=== PATIENT | female | born 1955 | race Caucasian/White ===

== ENCOUNTER → 2017-08-31 | Outpatient (CLI) | payer OTHER ==
[~2017-08-31] MED LIST: BUPIVACAINE HCL 0.5 % INJ/PF 30 ML SDV ONE
[2017-08-31 12:30] LABS: ABSOLUTE BASOPHILS # (AUTO) 0.1 10^3/uL (0.0-0.2); ABSOLUTE MONOCYTES (AUTO) 0.4 10^3/uL (0.1-1.4); ABSOLUTE NEUT (AUTO) 5.9 10^3/uL (1.7-8.2); BASOPHILS % (AUTO) 0.8 % (0-2); EOSINOPHILS % (AUTO) 0.6 % (0-6); HEMATOCRIT 36.5 % (36.0-47.0); LYMPHOCYTES % (AUTO) 14.1 % (13-45); MEAN CORPUSCULAR HEMOGLOBIN 28.3 pg (27.0-33.4); MEAN CORPUSCULAR VOLUME 86 fl (80-97); MONOCYTES % (AUTO) 5.1 % (3-13); PLATELET COUNT 498 10^3/uL (150-450); RED BLOOD COUNT 4.26 10^6/uL (3.72-5.28); RED CELL DISTRIBUTION WIDTH 13.3 % (11.5-14.0); SEGMENTED NEUTROPHILS % (AUTO) 79.4 % (42-78); TOTAL CELLS COUNTED % (AUTO) 100 %; WHITE BLOOD COUNT 7.4 10^3/uL (4.0-10.5)
[2017-08-31 12:51] LABS: ALANINE AMINOTRANSFERASE 40 U/L (9-52); ALBUMIN 4.5 g/dL (3.5-5.0); ALKALINE PHOSPHATASE 129 U/L (38-126); ANION GAP 15 (5-19); ASPARTATE AMINO TRANSFERASE 18 U/L (14-36); BILIRUBIN,DIRECT 0.3 mg/dL (0.0-0.4); BILIRUBIN,TOTAL 0.4 mg/dL (0.2-1.3); BLOOD UREA NITROGEN 17 mg/dL (7-20); C-REACTIVE PROTEIN 7.2 mg/L (<10.0); CALCIUM 10.5 mg/dL (8.4-10.2); CARBON DIOXIDE 28 mmol/L (22-30); CHLORIDE 101 mmol/L (98-107); GLUCOSE 101 mg/dL (75-110); POTASSIUM 3.8 mmol/L (3.6-5.0); SODIUM 144.3 mmol/L (137-145); TOTAL PROTEIN 7.6 g/dL (6.3-8.2)
[2017-08-31 13:14] LABS: ERYTHROCYTE SEDIMENTATION RATE 72 mm/hr (0-30)
--- NOTE | 2017-08-31 14:19 | RADIOLOGY REPORT (SQ) ---
EXAM DESCRIPTION: MRI RT UPPER EXTREMITY COMBO COMPLETED DATE/TIME: 08/31/2017 2:05 pm REASON FOR STUDY: M54.12 RADICULOPATHY,CERVICAL REGION M86.149 OTHER ACUTE OSTEOMYELITIS M86.149 OT HER ACUTE OSTEOMYELITIS, UNSPECIFIED HAND M54.12 RADICULOPATHY, CERVICAL REGION COMPARISON: None. TECHNIQUE: Multiplanar imaging of the right thumb to include fat and fluid sensitive sequences. LIMITATIONS: Motion. No plain film for correlation. FINDINGS: BONE MARROW: There is edema in the proximal and distal 1st phalanges. There is a defect i n the head of the proximal 1st phalanx. No evidence of bone abscess. SOFT TISSUES: Swelling and edema in the soft tissues adjacent to the proximal and distal 1st phalanx. Subcutaneous gas. No organized gas fluid collection. OTHER: No other significant finding. IMPRESSION: Positive for osteomyelitis proximal and distal 1st phalanx. TECHNICAL DOCUMENTATION: JOB ID: [id number] [employer]- All Rights Reserved
--- NOTE | 2017-08-31 14:21 | RADIOLOGY REPORT (SQ) ---
EXAM DESCRIPTION: MRI CERVICAL SPINE WITHOUT COMPLETED DATE/TIME: 08/31/2017 2:05 pm REASON FOR STUDY: M54.12 RADICULOPATHY,CERVICAL REGION M86.149 OTHER ACUTE OSTEOMYELITIS M86.149 OT HER ACUTE OSTEOMYELITIS, UNSPECIFIED HAND M54.12 RADICULOPATHY, CERVICAL REGION COMPARISON: None available. Previous MRI exams from [facility] are not available TECHNIQUE: Sagittal and Axial imaging includes T1, T2, STIR and gradient echo sequences. LIMITATIONS: None. FINDINGS: ALIGNMENT: Normal. VERTEBRAE: Intact. BONE MARROW: Normal. No marrow replacement or reactive changes. DISCS: Normal. No significant abnormal signal or loss of height. HARDWARE: None in the spine. CORD AND BASE OF BRAIN: There is a cervical cord syrinx involving the rightward half of the cervical and upper thoracic spinal cord, from the medulla at the C1 level through the inferior edge of the fi eld of view at T4. SOFT TISSUES: No soft tissue masses. C1-C2: No significant spinal stenosis. C2-C3: No significant spinal stenosis or exit foraminal stenosis. C3-C4: No significant spinal stenosis or exit foraminal stenosis. C4-C5: No significant spinal stenosis or exit foraminal stenosis. C5-C6: No significant spinal stenosis or exit foraminal stenosis. C6-C7: Minimal posterior disc bulging is present without significant central or foraminal encroachmen t. C7-T1: No significant spinal stenosis or exit foraminal stenosis. UPPER THORACIC: Incompletely imaged. No significant spinal stenosis or exit foraminal stenosis. OTHER: No other significant finding. IMPRESSION: No significant central or foraminal encroachment. Cervical cord syrinx extending into the upper thoracic cord. Inferior extent of this was not imaged today TECHNICAL DOCUMENTATION: JOB ID: [id number]- All Rights Reserved
== END ==
LOC: RAD 11:28
PROVIDERS: ATTEND Orthopaedic Surgery
DX: M54.12 Radiculopathy, cervical region (principal); M86.141 Other acute osteomyelitis, right hand
CPT/HCPCS: 36415; 87040; 85025; 85652; 86140; 80053; 72141; 73220; A9576

== ENCOUNTER 2017-09-01 05:32 | Inpatient (IN) | payer OTHER ==
--- NOTE | 2017-09-01 15:50 | RADIOLOGY REPORT (SQ) ---
EXAM DESCRIPTION: CHEST SINGLE VIEW COMPLETED DATE/TIME: 09/01/2017 3:35 pm REASON FOR STUDY: PREOP COMPARISON: None. EXAM PARAMETERS: NUMBER OF VIEWS: One view. TECHNIQUE: Single frontal radiographic view of the chest acquired. RADIATION DOSE: NA LIMITATIONS: None. FINDINGS: LUNGS AND PLEURA: No opacities, masses or pneumothorax. No pleural effusion. MEDIASTINUM AND HILAR STRUCTURES: No masses. Contour normal. Retrocardiac hiatal hernia. HEART AND VASCULAR STRUCTURES: Heart normal in size. Normal vasculature. BONES: Osteopenic. Right shoulder arthroplasty HARDWARE: Radiopaque wire projected over the midline chest, at about the T10 level OTHER: No other significant finding. IMPRESSION: NO ACUTE RADIOGRAPHIC FINDING IN THE CHEST. TECHNICAL DOCUMENTATION: JOB ID: [id number] [employer]- All Rights Reserved
[2017-09-01] MEDS ORDERED: FENTANYL CITRATE INJ/PF 100 MCG/2 ML AMPUL ONE (16:29)
[2017-09-01] MEDS ORDERED: PROPOFOL INJ 200 MG/20 ML VIAL IV ONE (16:30)
[2017-09-01] MEDS ORDERED: MIDAZOLAM 2 MG/2 ML INJ ONE (16:30)
[2017-09-01] MEDS ORDERED: CLINDAMYCIN PHOSPHATE INJ 300 MG/2 ML SDV ONE (17:06)
--- NOTE | 2017-09-01 17:23 | Operative Report ---
Operative Report PREOPERATIVE DIAGNOSIS: Osteomyelitis right thumb distal and proximal phalanx POSTOPERATIVE DIAGNOSIS: Same OPERATION: Irrigation and debridement including bone and soft tissue with amputation of the right thumb at the level of the proximal phalanx neck. SURGEON: NESSA MCGUIRE ANESTHESIA: GA TISSUE REMOVED OR ALTERED: Aerobic/anaerobic cultures. AFB fungal. Bone sent to pathology COMPLICATIONS: None ESTIMATED BLOOD LOSS: Minimal PROCEDURE: Indication for above procedure: 62-year-old female with history of syrinx which she underwent surgery for in the past. Patient sustained a burn to her right thumb since then she has noticed increased redness and swelling but not discomfort likely secondary to chronic neuropathy. I then obtained laboratory values and MRI which confirmed diagnosis of osteomyelitis. We discussed treatment options given the extensive nature of her injury the joint decision was made to proceed with operative treatment including amputation at the appropriate level. Patient understands she will lose function after partial thumb amputation also will attempt to retain as much thumb as possible and thus patient may require repeat operative intervention. Procedure In Detail: Patient was seen and evaluated in the preoperative holding area. The RIGHT upper extremity was initialized and marked. Patient received clindamycin for bacterial prophylaxis after cultures were obtained intraoperatively. Patient was taken back to the operative room where transferred to the operative table and placed under general anesthesia. Once they were adequately anesthetized a nonsterile tourniquet was placed on the upper extremity. A surgical team debriefing was performed ensuring all instrumentation was available, the surgical procedure was discussed with possible concerns reviewed. The upper extremity was prepped with Betadine and draped in a sterile fashion. A timeout was done identifying correct patient, procedure and extremity everyone in attendance agree with this and verbalized no concerns. The extremity was elevated the tourniquet was inflated to 250 mmHg. A volar flap skin incision was made along the distal aspect of the thumb involving tissue of the volar pulp but extending proximally past patient's wounds. Sharp dissection was performed and a transarticular amputation was performed at the DIP joint. Tissue swabs were sent for culture. The distal phalanx was then split with partial going to culture and other part going to pathology. This will be sent for AFB, fungal, aerobic and anaerobic culture. I then identified the proximal phalanx head. This was then amputated at the level consistent with osteomyelitis on patient's MRI. There was still some residual softening of the bone proximal to this this was also removed until normal-appearing bone was encountered. No active purulence was appreciated proximally. Any peripheral bleeding was coagulated with bipolar cautery. Branches of the digital nerves were excised proximally to avoid postoperative neuroma. The wound was then copiously irrigated with normal saline. The stump was then closed with interrupted 3-0 nylon suture. The edges were contoured to avoid any dog ear. The wound was then dressed with Xeroform and a soft dressing and tourniquet was deflated. Sponge counts, instrument counts, needle counts counts were correct. Patient was then awoken from anesthesia. Transferred from the operating room table to the operating room stretcher. There was no intraoperative complications patient tolerated procedure well stable to PACU. Postoperative plan: Patient will be admitted to the hospital for IV antibiotics. Patient will require PICC line treatment for 4 weeks postoperatively
[2017-09-01] MEDS ORDERED: ONDANSETRON HCL INJ/PF 4 MG/2 ML SDV IV PRN (17:24)
[2017-09-01] MEDS ORDERED: MORPHINE SULFATE 10 MG/ML INJ IV PRN (17:41)
[2017-09-01] MEDS ORDERED: DIPHENHYDRAMINE HCL 50 MG/ML VIAL IV PRN (17:41)
[2017-09-01] MEDS ORDERED: MEPERIDINE HCL/PF INJ 25 MG/1 ML DISP.SYRIN IV PRN (17:41)
[2017-09-01] MEDS ORDERED: PROMETHAZINE HCL INJ 25 MG/1 ML VIAL IV PRN (17:41)
[2017-09-01] MEDS ORDERED: FENTANYL CITRATE INJ/PF 100 MCG/2 ML AMPUL IV PRN (17:41)
[2017-09-01] MEDS ORDERED: OXYCODONE-ACETAMINOPHEN 5-325 MG TABLET PO PRN (18:17)
--- NOTE | 2017-09-01 18:18 | EKG REPORT ---
SEVERITY:- OTHERWISE NORMAL ECG - SINUS TACHYCARDIA : Confirmed by: Jeremy Beyer MD 01-Sep-2017 18:17:39
[2017-09-01] MEDS ORDERED: DEXAMETHASONE SOD PHOSPHATE INJ 4 MG/1 ML VIAL ONE (20:43)
[2017-09-01] MEDS ORDERED: ONDANSETRON HCL INJ/PF 4 MG/2 ML SDV ONE (20:43)
[2017-09-01] MEDS ORDERED: NORMAL SALINE 1000 ML 2,000 ML IV ONE (23:36)
[2017-09-02 01:41] LABS: APPEARANCE,URINE CLEAR; BILIRUBIN,URINE NEGATIVE (NEGATIVE); COLOR,URINE STRAW; GLUCOSE, URINE NEGATIVE (NEGATIVE); KETONES,URINE NEGATIVE (NEGATIVE); LEUKOCYTE ESTERASE,URINE NEGATIVE (NEGATIVE); NITRITE,URINE NEGATIVE (NEGATIVE); PROTEIN,URINE NEGATIVE (NEGATIVE); URINE SPECIFIC GRAVITY 1.005; UROBILINOGEN,URINE NEGATIVE mg/dL (<2.0)
--- NOTE | 2017-09-02 02:39 | PDOC CONSULTATION ---
Consultation Consult Date: 09/01/17 Attending physician:: NESSA MCGUIRE Consult reason:: Hypotension History of Present Illness Admission Date/PCP: JESSE GODFREY MD History of Present Illness: CHARO SEPULVEDA is a 62 year old female with past medical history of syrinx, depression, hypertension, hyperlipidemia and prediabetes who underwent right thumb removal for osteomyelitis today. Patient reports that she took her lisinopril this morning. She reports that she felt quite dehydrated that she went to bed quite early last evening and had not had anything to eat or drink until after surgery. Patient was found to be hypotensive postoperatively with blood pressure of 80/50. The hospital service is consulted for management of hypotension. Past Medical History Cardiac Medical History: Reports: Hyperlipidema, Hypertension Denies: Coronary Artery Disease, Myocardial Infarction Pulmonary Medical History: Denies: Asthma, Bronchitis, Chronic Obstructive Pulmonary Disease (COPD), Pneumonia Neurological Medical History: Reports: Other - Syrinx Denies: Seizures Musculoskeltal Medical History: Reports: Arthritis Hematology: Denies: Anemia Past Surgical History Past Surgical History: Reports: Orthopedic Surgery, Other - Spinal fusion, shunt for syrinx Social History Smoking Status: Never Smoker Frequency of Alcohol Use: Rare Hx Recreational Drug Use: No Hx Prescription Drug Abuse: No - Advance Directive Resuscitation Status: Full Code Surrogate healthcare decision maker:: , Carlin Ortega Family History Family History: Hypertension Parental Family History Reviewed: Yes Children Family History Reviewed: Yes Sibling(s) Family History Reviewed.: Yes Medication/Allergy Home Medications: Aspirin [Ecotrin 81 mg EC Tablet] 81 mg PO DAILY 08/31/17 Bupropion HCl [Bupropion HCl Sr] 100 mg PO QAM 08/31/17 Cholecalciferol (Vitamin D3) [Vitamin D3] 1,000 unit PO DAILY 08/31/17 Cyclobenzaprine HCl 10 mg PO PRN PRN 08/31/17 Hydrocodone Bit/Acetaminophen [Hydrocodon-Acetaminophen 5-325] 1 each PO Q6 PRN 08/31/17 Lisinopril/Hydrochlorothiazide [Lisinopril-Hctz 20-25 mg Tab] 1 each PO DAILY Metformin HCl [Metformin HCl ER] 500 mg PO QAM 08/31/17 Pravastatin Sodium 40 mg PO QHS 08/31/17 Sulfamethoxazole/Trimethoprim [Bactrim Ds Tablet] 1 each PO BID 08/31/17 Allergies/Adverse Reactions: No Known Allergies Allergy (Verified 09/01/17 16:12) Review of Systems Constitutional: ABSENT: chills, fever(s), headache(s), weight gain, weight loss Eyes: ABSENT: visual disturbances Ears: ABSENT: hearing changes Cardiovascular: ABSENT: chest pain, dyspnea on exertion, edema, orthropnea, palpitations Respiratory: ABSENT: cough, hemoptysis Gastrointestinal: ABSENT: abdominal pain, constipation, diarrhea, hematemesis, hematochezia, nausea, vomiting Genitourinary: ABSENT: dysuria, hematuria Musculoskeletal: ABSENT: joint swelling Integumentary: ABSENT: rash, wounds Neurological: ABSENT: abnormal gait, abnormal speech, confusion, dizziness, focal weakness, syncope Psychiatric: ABSENT: anxiety, depression, homidical ideation, suicidal ideation Endocrine: ABSENT: cold intolerance, heat intolerance, polydipsia, polyuria Hematologic/Lymphatic: ABSENT: easy bleeding, easy bruising Physical Exam Vital Signs: Temp Pulse Resp BP Pulse Ox 98.4 F 93 17 103/55 L 97 09/01/17 20:16 09/01/17 20:16 09/01/17 20:16 09/01/17 20:16 09/01/17 20:16 Intake & Output 08/31/17 09/01/17 09/02/17 06:59 06:59 06:59 Intake Total 1200 Balance 1200 Weight 57.15 kg 57.15 kg General appearance: PRESENT: no acute distress, well-developed, well-nourished Head exam: PRESENT: atraumatic, normocephalic Eye exam: PRESENT: conjunctiva pink, EOMI, PERRLA. ABSENT: scleral icterus Ear exam: PRESENT: normal external ear exam Mouth exam: PRESENT: dry mucosa, tongue midline Neck exam: ABSENT: carotid bruit, JVD, lymphadenopathy, thyromegaly Respiratory exam: PRESENT: clear to auscultation josé miguel. ABSENT: rales, rhonchi, wheezes Cardiovascular exam: PRESENT: RRR, +S1, +S2. ABSENT: diastolic murmur, rubs, systolic murmur Pulses: PRESENT: normal dorsalis pedis pul Vascular exam: PRESENT: normal capillary refill GI/Abdominal exam: PRESENT: normal bowel sounds, soft. ABSENT: distended, guarding, mass, organolmegaly, rebound, tenderness Rectal exam: PRESENT: deferred Extremities exam: PRESENT: full ROM. ABSENT: calf tenderness, clubbing, pedal edema Musculoskeletal exam: PRESENT: deformity - Right hand bandage, clean dry and intact Neurological exam: PRESENT: alert, awake, oriented to person, oriented to place , oriented to time, oriented to situation, CN II-XII grossly intact. ABSENT: motor sensory deficit Psychiatric exam: PRESENT: appropriate affect, normal mood. ABSENT: homicidal ideation, suicidal ideation Skin exam: PRESENT: dry, intact, warm. ABSENT: cyanosis, rash Results Laboratory Results: 09/02/17 01:20 Urine Color STRAW Urine Appearance CLEAR Urine pH 7.0 Ur Specific [place] 1.005 Urine Protein NEGATIVE Urine Glucose (UA) NEGATIVE Urine Ketones NEGATIVE Urine Blood NEGATIVE Urine Nitrite NEGATIVE Ur Leukocyte Esterase NEGATIVE Urine WBC (Auto) 0 Urine RBC (Auto) 0 Impressions: Chest X-Ray 09/01/17 00:00 IMPRESSION: NO ACUTE RADIOGRAPHIC FINDING IN THE CHEST. Assessment & Plan - Diagnosis (1) Hypotension Qualifiers: Hypotension type: unspecified hypotension type Qualified Code(s): I95.9 - Hypotension, unspecified Is this a current diagnosis for this admission?: Yes Plan: Patient's hypotension is likely secondary to intravascular volume depletion as well as good compliance with her antihypertensive therapy. Will give patient a 2 L bolus and then run patient on normal saline at 150 mL/h. On the off chance that patient could be developing an infection we will obtain a UA and recommend repeat CBC in the a.m. patient is currently on clindamycin and Cipro for her osteomyelitis. Defer treatment of the osteomyelitis to the primary surgical team. (2) Osteomyelitis Qualifiers: Osteomyelitis type: unspecified type Osteomyelitis location: hand Laterality: right Qualified Code(s): M86.9 - Osteomyelitis, unspecified Is this a current diagnosis for this admission?: Yes Plan: patient is on Cipro and clindamycin for her osteomyelitis. Defer treatment of her osteomyelitis to the primary surgical team. They should be advised to monitor for other symptoms of sepsis. (3) Dehydration Is this a current diagnosis for this admission?: Yes Plan: Will give 2 L bolus and obtain orthostatics. - Time Time Spent: 30 to 50 Minutes
[2017-09-02] MEDS: CIPROFLOXACIN 200 MG/D5W RTU 200 MG/100 ML RTUPB IV SCH ×3 (03:50→21:50)
[2017-09-02] MEDS: RIVAROXABAN 10 MG TABLET PO SCH ×2 (03:53→21:50)
[2017-09-02 05:20] LABS: ABSOLUTE LYMPHOCYTES (AUTO) 1.2 10^3/uL (0.5-4.7); ABSOLUTE MONOCYTES (AUTO) 0.3 10^3/uL (0.1-1.4); ABSOLUTE NEUT (AUTO) 3.9 10^3/uL (1.7-8.2); BASOPHILS % (AUTO) 0.4 % (0-2); EOSINOPHILS % (AUTO) 0.1 % (0-6); HEMATOCRIT 27.4 % (36.0-47.0); LYMPHOCYTES % (AUTO) 21.7 % (13-45); MEAN CORPUSCULAR HEMOGLOBIN 28.6 pg (27.0-33.4); MEAN CORPUSCULAR HGB CONC 33.3 g/dL (32.0-36.0); MEAN CORPUSCULAR VOLUME 86 fl (80-97); MONOCYTES % (AUTO) 5.3 % (3-13); PLATELET COUNT 317 10^3/uL (150-450); RED CELL DISTRIBUTION WIDTH 13.4 % (11.5-14.0); SEGMENTED NEUTROPHILS % (AUTO) 72.5 % (42-78); TOTAL CELLS COUNTED % (AUTO) 100 %; WHITE BLOOD COUNT 5.4 10^3/uL (4.0-10.5)
[2017-09-02 05:29] LABS: HEMOGLOBIN 9.1 g/dL (12.0-15.5)
[2017-09-02] MEDS: CLINDAMYCIN 600 MG/D5W RTU 600 MG/50 ML RTUPB IV SCH ×3 (05:29→17:02)
[2017-09-02 05:50] LABS: ANION GAP 11 (5-19); BLOOD UREA NITROGEN 16 mg/dL (7-20); CALCIUM 8.7 mg/dL (8.4-10.2); CARBON DIOXIDE 20 mmol/L (22-30); CHLORIDE 111 mmol/L (98-107); GLUCOSE 100 mg/dL (75-110); POTASSIUM 4.4 mmol/L (3.6-5.0); SODIUM 141.5 mmol/L (137-145)
--- NOTE | 2017-09-02 09:13 | PDOC PROGRESS REPORT ---
Subjective Progress Note for:: 09/02/17 Subjective:: Patient voices no complaints Reason For Visit: OSTEOMYELITIS RIGHT THUMB Physical Exam Vital Signs: Temp Pulse Resp BP Pulse Ox 98.3 F 91 18 99/59 L 99 09/02/17 07:26 09/02/17 07:26 09/02/17 07:26 09/02/17 07:26 09/02/17 07:26 Intake & Output 09/01/17 09/02/17 09/03/17 06:59 06:59 06:59 Intake Total 4107 Output Total 1050 Balance 3057 Weight 57.15 kg 57.3 kg General appearance: PRESENT: no acute distress, cooperative, well-developed, well-nourished Head exam: PRESENT: atraumatic, normocephalic Eye exam: PRESENT: conjunctiva pink, EOMI, PERRLA Ear exam: PRESENT: normal external ear exam Mouth exam: PRESENT: moist Neck exam: PRESENT: full ROM. ABSENT: JVD, tenderness, thyromegaly Respiratory exam: PRESENT: clear to auscultation josé miguel Cardiovascular exam: PRESENT: RRR. ABSENT: diastolic murmur, systolic murmur Vascular exam: PRESENT: normal capillary refill GI/Abdominal exam: PRESENT: normal bowel sounds, soft. ABSENT: tenderness Extremities exam: PRESENT: full ROM. ABSENT: joint swelling, pedal edema Neurological exam: PRESENT: alert, oriented to person, oriented to place, oriented to time, CN II-XII grossly intact Results Laboratory Results: 09/02/17 04:28 09/02/17 04:28 09/02/17 09/02/17 09/02/17 01:20 01:33 04:28 WBC 5.4 RBC 3.20 L Hgb 9.1 L D Hct 27.4 L MCV 86 MCH 28.6 MCHC 33.3 RDW 13.4 Plt Count 317 Seg Neutrophils % 72.5 Lymphocytes % 21.7 Monocytes % 5.3 Eosinophils % 0.1 Basophils % 0.4 Absolute Neutrophils 3.9 Absolute Lymphocytes 1.2 Absolute Monocytes 0.3 Absolute Eosinophils 0.0 Absolute Basophils 0.0 Sodium Potassium Chloride Carbon Dioxide Anion Gap BUN Creatinine Est GFR ( Amer) Est GFR (Non-Af Amer) Glucose Calcium Urine Color STRAW Urine Appearance CLEAR Urine pH 7.0 Ur Specific [place] 1.005 Urine Protein NEGATIVE Urine Glucose (UA) NEGATIVE Urine Ketones NEGATIVE Urine Blood NEGATIVE Urine Nitrite NEGATIVE Ur Leukocyte Esterase NEGATIVE Urine WBC (Auto) 0 Urine RBC (Auto) 0 Blood Type AB POSITIVE Antibody Screen NEGATIVE 09/02/17 04:28 WBC RBC Hgb Hct MCV MCH MCHC RDW Plt Count Seg Neutrophils % Lymphocytes % Monocytes % Eosinophils % Basophils % Absolute Neutrophils Absolute Lymphocytes Absolute Monocytes Absolute Eosinophils Absolute Basophils Sodium 141.5 Potassium 4.4 Chloride 111 H Carbon Dioxide 20 L Anion Gap 11 BUN 16 Creatinine 0.74 Est GFR ( Amer) > 60 Est GFR (Non-Af Amer) > 60 Glucose 100 Calcium 8.7 Urine Color Urine Appearance Urine pH Ur Specific [place] Urine Protein Urine Glucose (UA) Urine Ketones Urine Blood Urine Nitrite Ur Leukocyte Esterase Urine WBC (Auto) Urine RBC (Auto) Blood Type Antibody Screen Impressions: Chest X-Ray 09/01/17 00:00 IMPRESSION: NO ACUTE RADIOGRAPHIC FINDING IN THE CHEST. Assessment & Plan - Diagnosis (1) Dehydration Is this a current diagnosis for this admission?: Yes Plan: Resolved (2) Hypotension Qualifiers: Hypotension type: unspecified hypotension type Qualified Code(s): I95.9 - Hypotension, unspecified Is this a current diagnosis for this admission?: Yes Plan: Stable and likely induced due to medications for pain and dehydration - Time Time Spent with patient: Less than 15 minutes Medications reviewed and adjusted accordingly: Yes Anticipated discharge: Home Disposition: As per admitting physician
--- NOTE | 2017-09-02 09:25 | EKG REPORT ---
SEVERITY:- NORMAL ECG - SINUS RHYTHM : Confirmed by: Jeremy Beyer MD 02-Sep-2017 09:25:05
--- NOTE | 2017-09-02 09:41 | PDOC PROGRESS REPORT ---
Subjective Progress Note for:: 09/02/17 Subjective:: Patient ambulating in her room. Denies pain or discomfort. Did have some hypotension last evening but denies chest pain or shortness of breath. Denies headache or dizziness. Reason For Visit: OSTEOMYELITIS RIGHT THUMB Physical Exam Vital Signs: Temp Pulse Resp BP Pulse Ox 98.3 F 91 18 99/59 L 99 09/02/17 07:26 09/02/17 07:26 09/02/17 07:26 09/02/17 07:26 09/02/17 07:26 Intake & Output 09/01/17 09/02/17 09/03/17 06:59 06:59 06:59 Intake Total 4107 Output Total 1050 Balance 3057 Weight 57.15 kg 57.3 kg Musculoskeletal exam: PRESENT: other - Right hand: Dressing clean/dry/intact no erythema or drainage no streaking erythema. Results Laboratory Results: 09/02/17 04:28 09/02/17 04:28 09/02/17 09/02/17 09/02/17 01:20 01:33 04:28 WBC 5.4 RBC 3.20 L Hgb 9.1 L D Hct 27.4 L MCV 86 MCH 28.6 MCHC 33.3 RDW 13.4 Plt Count 317 Seg Neutrophils % 72.5 Lymphocytes % 21.7 Monocytes % 5.3 Eosinophils % 0.1 Basophils % 0.4 Absolute Neutrophils 3.9 Absolute Lymphocytes 1.2 Absolute Monocytes 0.3 Absolute Eosinophils 0.0 Absolute Basophils 0.0 Sodium Potassium Chloride Carbon Dioxide Anion Gap BUN Creatinine Est GFR ( Amer) Est GFR (Non-Af Amer) Glucose Calcium Urine Color STRAW Urine Appearance CLEAR Urine pH 7.0 Ur Specific [place] 1.005 Urine Protein NEGATIVE Urine Glucose (UA) NEGATIVE Urine Ketones NEGATIVE Urine Blood NEGATIVE Urine Nitrite NEGATIVE Ur Leukocyte Esterase NEGATIVE Urine WBC (Auto) 0 Urine RBC (Auto) 0 Blood Type AB POSITIVE Antibody Screen NEGATIVE 09/02/17 04:28 WBC RBC Hgb Hct MCV MCH MCHC RDW Plt Count Seg Neutrophils % Lymphocytes % Monocytes % Eosinophils % Basophils % Absolute Neutrophils Absolute Lymphocytes Absolute Monocytes Absolute Eosinophils Absolute Basophils Sodium 141.5 Potassium 4.4 Chloride 111 H Carbon Dioxide 20 L Anion Gap 11 BUN 16 Creatinine 0.74 Est GFR ( Amer) > 60 Est GFR (Non-Af Amer) > 60 Glucose 100 Calcium 8.7 Urine Color Urine Appearance Urine pH Ur Specific [place] Urine Protein Urine Glucose (UA) Urine Ketones Urine Blood Urine Nitrite Ur Leukocyte Esterase Urine WBC (Auto) Urine RBC (Auto) Blood Type Antibody Screen Impressions: Chest X-Ray 09/01/17 00:00 IMPRESSION: NO ACUTE RADIOGRAPHIC FINDING IN THE CHEST. Assessment & Plan - Diagnosis (1) Osteomyelitis Qualifiers: Osteomyelitis type: unspecified type Osteomyelitis location: hand Laterality: right Qualified Code(s): M86.9 - Osteomyelitis, unspecified Is this a current diagnosis for this admission?: Yes Plan: Patient had no issues postoperatively after amputation of her thumb distal phalanx. We will continue to monitor cultures depending on culture results will change antibiotics accordingly. Given the extensive nature of her infection I do feel she would benefit from a PICC line for at least 4 weeks of IV antibiotics. Anticipate discharge once cultures are final at home antibiotics set up.
[2017-09-02] MEDS ORDERED: NORMAL SALINE 1000 ML 1,000 ML IV ONE (13:15)
[2017-09-03] MEDS: NORMAL SALINE 1000 ML 1,000 ML IV PRN ×2 (04:22→09:36)
[2017-09-03] MEDS: CLINDAMYCIN 600 MG/D5W RTU 600 MG/50 ML RTUPB IV SCH (04:22)
[2017-09-03 05:27] LABS: ABSOLUTE EOSINOPHILS # (AUTO) 0.1 10^3/uL (0.0-0.6); ABSOLUTE LYMPHOCYTES (AUTO) 1.5 10^3/uL (0.5-4.7); ABSOLUTE MONOCYTES (AUTO) 0.3 10^3/uL (0.1-1.4); BASOPHILS % (AUTO) 1.2 % (0-2); EOSINOPHILS % (AUTO) 2.4 % (0-6); HEMATOCRIT 27.9 % (36.0-47.0); HEMOGLOBIN 9.2 g/dL (12.0-15.5); LYMPHOCYTES % (AUTO) 37.3 % (13-45); MEAN CORPUSCULAR HEMOGLOBIN 28.6 pg (27.0-33.4); MEAN CORPUSCULAR VOLUME 87 fl (80-97); MONOCYTES % (AUTO) 8.2 % (3-13); PLATELET COUNT 279 10^3/uL (150-450); RED BLOOD COUNT 3.21 10^6/uL (3.72-5.28); RED CELL DISTRIBUTION WIDTH 13.7 % (11.5-14.0); SEGMENTED NEUTROPHILS % (AUTO) 50.9 % (42-78); TOTAL CELLS COUNTED % (AUTO) 100 %; WHITE BLOOD COUNT 3.9 10^3/uL (4.0-10.5)
[2017-09-03 06:16] LABS: ANION GAP 9 (5-19); BLOOD UREA NITROGEN 17 mg/dL (7-20); CALCIUM 8.8 mg/dL (8.4-10.2); CARBON DIOXIDE 22 mmol/L (22-30); CHLORIDE 110 mmol/L (98-107); GLUCOSE 99 mg/dL (75-110); POTASSIUM 4.5 mmol/L (3.6-5.0); SODIUM 141.1 mmol/L (137-145)
[2017-09-03] MEDS: CIPROFLOXACIN 200 MG/D5W RTU 200 MG/100 ML RTUPB IV SCH (09:34)
--- NOTE | 2017-09-03 09:53 | PDOC PROGRESS REPORT ---
Subjective Progress Note for:: 09/03/17 Subjective:: Patient voices no complaints Review of systems All organ systems had been reviewed and negative All significant laboratories and diagnostics had been reviewed Reason For Visit: OSTEOMYELITIS RIGHT THUMB Physical Exam Vital Signs: Temp Pulse Resp BP Pulse Ox 98.3 F 97 17 93/48 L 98 09/03/17 00:00 09/03/17 00:00 09/03/17 00:00 09/03/17 00:00 09/03/17 00:00 Intake & Output 09/02/17 09/03/17 09/04/17 06:59 06:59 06:59 Intake Total 4107 2130 Output Total 1050 Balance 3057 2130 Weight 57.3 kg 94.1 kg General appearance: PRESENT: no acute distress Head exam: PRESENT: atraumatic, normocephalic Eye exam: PRESENT: conjunctiva pink, EOMI, PERRLA Mouth exam: PRESENT: moist Neck exam: PRESENT: full ROM. ABSENT: JVD, tenderness Respiratory exam: PRESENT: clear to auscultation josé miguel Cardiovascular exam: PRESENT: RRR. ABSENT: diastolic murmur, systolic murmur Vascular exam: PRESENT: normal capillary refill GI/Abdominal exam: PRESENT: normal bowel sounds, soft. ABSENT: tenderness Extremities exam: PRESENT: full ROM. ABSENT: joint swelling, pedal edema Neurological exam: PRESENT: alert, oriented to person, oriented to place, oriented to time Psychiatric exam: PRESENT: appropriate affect, normal mood Results Laboratory Results: 09/03/17 04:19 09/03/17 04:19 09/03/17 09/03/17 04:19 04:19 WBC 3.9 L RBC 3.21 L Hgb 9.2 L Hct 27.9 L MCV 87 MCH 28.6 MCHC 33.0 RDW 13.7 Plt Count 279 Seg Neutrophils % 50.9 Lymphocytes % 37.3 Monocytes % 8.2 Eosinophils % 2.4 Basophils % 1.2 Absolute Neutrophils 2.0 Absolute Lymphocytes 1.5 Absolute Monocytes 0.3 Absolute Eosinophils 0.1 Absolute Basophils 0.0 Sodium 141.1 Potassium 4.5 Chloride 110 H Carbon Dioxide 22 Anion Gap 9 BUN 17 Creatinine 0.73 Est GFR ( Amer) > 60 Est GFR (Non-Af Amer) > 60 Glucose 99 Calcium 8.8 09/01/17 17:02 Hand - Right Gram Stain - Final Impressions: Chest X-Ray 09/01/17 00:00 IMPRESSION: NO ACUTE RADIOGRAPHIC FINDING IN THE CHEST. Assessment & Plan - Diagnosis (1) Dehydration Is this a current diagnosis for this admission?: Yes Plan: Resolved (2) Hypotension Qualifiers: Hypotension type: unspecified hypotension type Qualified Code(s): I95.9 - Hypotension, unspecified Is this a current diagnosis for this admission?: Yes Plan: Resolved (3) Bacteremia Is this a current diagnosis for this admission?: Yes Plan: Blood culture 1 bottle growing gram-positive cocci. Will discontinue clindamycin IV and place her on Zyvox. Order echocardiogram - Time Time Spent with patient: 15-24 minutes Medications reviewed and adjusted accordingly: Yes Anticipated discharge: Home - Inpatient Certification Based on my medical assessment, after consideration of the patient's comorbidities, presenting symptoms, or acuity I expect that the services needed warrant INPATIENT care.: Yes
--- NOTE | 2017-09-03 10:26 | PDOC PROGRESS REPORT ---
Subjective Subjective:: Patient ambulating in her room. Denies pain or discomfort. Denies headache or dizziness. Denies fever chills or sweats. Denies chest pain or shortness of breath. Reason For Visit: OSTEOMYELITIS RIGHT THUMB Physical Exam Vital Signs: Temp Pulse Resp BP Pulse Ox 98.4 F 88 18 121/65 98 09/03/17 07:22 09/03/17 07:22 09/03/17 07:22 09/03/17 07:22 09/03/17 07:22 Intake & Output 09/02/17 09/03/17 09/04/17 06:59 06:59 06:59 Intake Total 4107 2130 Output Total 1050 Balance 3057 2130 Weight 57.3 kg 94.1 kg Musculoskeletal exam: PRESENT: other - Right thumb: Dressing change today. Surgical incision well approximated no erythema or drainage. Redness and swelling along the thumb has notably improved. Results Laboratory Results: 09/03/17 04:19 09/03/17 04:19 09/03/17 09/03/17 04:19 04:19 WBC 3.9 L RBC 3.21 L Hgb 9.2 L Hct 27.9 L MCV 87 MCH 28.6 MCHC 33.0 RDW 13.7 Plt Count 279 Seg Neutrophils % 50.9 Lymphocytes % 37.3 Monocytes % 8.2 Eosinophils % 2.4 Basophils % 1.2 Absolute Neutrophils 2.0 Absolute Lymphocytes 1.5 Absolute Monocytes 0.3 Absolute Eosinophils 0.1 Absolute Basophils 0.0 Sodium 141.1 Potassium 4.5 Chloride 110 H Carbon Dioxide 22 Anion Gap 9 BUN 17 Creatinine 0.73 Est GFR ( Amer) > 60 Est GFR (Non-Af Amer) > 60 Glucose 99 Calcium 8.8 09/01/17 17:02 Hand - Right Gram Stain - Final Impressions: Chest X-Ray 09/01/17 00:00 IMPRESSION: NO ACUTE RADIOGRAPHIC FINDING IN THE CHEST. Assessment & Plan - Diagnosis (1) Osteomyelitis Qualifiers: Osteomyelitis type: unspecified type Osteomyelitis location: hand Laterality: right Qualified Code(s): M86.9 - Osteomyelitis, unspecified Is this a current diagnosis for this admission?: Yes Plan: Status post right thumb amputation 09/01/17 #1 patient antibiotics has been transitioned to Zyvox given the positive bacteremia as per hospitalist recommendation. Patient also receiving echo. We will proceed with PICC line placement once bacteremia resolved #2 continue to follow wound cultures and adjust antibiotics accordingly. #3 given patient's osteomyelitis involvement she will require at least 4 weeks of IV antibiotics. #4 discharge planning patient will require home IV antibiotics.
[2017-09-03] MEDS: LINEZOLID 300 ML IV SCH ×2 (11:33→21:57)
[2017-09-03] MEDS: RIVAROXABAN 10 MG TABLET PO SCH (21:57)
[2017-09-04] MEDS: NORMAL SALINE 1000 ML 1,000 ML IV PRN ×2 (05:45→19:10)
[2017-09-04 07:04] LABS: ABSOLUTE BASOPHILS # (AUTO) 0.1 10^3/uL (0.0-0.2); ABSOLUTE EOSINOPHILS # (AUTO) 0.2 10^3/uL (0.0-0.6); ABSOLUTE LYMPHOCYTES (AUTO) 1.3 10^3/uL (0.5-4.7); ABSOLUTE MONOCYTES (AUTO) 0.3 10^3/uL (0.1-1.4); ABSOLUTE NEUT (AUTO) 1.9 10^3/uL (1.7-8.2); BASOPHILS % (AUTO) 1.4 % (0-2); EOSINOPHILS % (AUTO) 4.3 % (0-6); HEMOGLOBIN 9.9 g/dL (12.0-15.5); LYMPHOCYTES % (AUTO) 36.3 % (13-45); MEAN CORPUSCULAR HEMOGLOBIN 28.5 pg (27.0-33.4); MEAN CORPUSCULAR HGB CONC 33.1 g/dL (32.0-36.0); MEAN CORPUSCULAR VOLUME 86 fl (80-97); PLATELET COUNT 287 10^3/uL (150-450); RED BLOOD COUNT 3.49 10^6/uL (3.72-5.28); RED CELL DISTRIBUTION WIDTH 13.6 % (11.5-14.0); TOTAL CELLS COUNTED % (AUTO) 100 %; WHITE BLOOD COUNT 3.7 10^3/uL (4.0-10.5)
[2017-09-04 07:23] LABS: ANION GAP 10 (5-19); BLOOD UREA NITROGEN 12 mg/dL (7-20); CALCIUM 9.2 mg/dL (8.4-10.2); CARBON DIOXIDE 24 mmol/L (22-30); CHLORIDE 109 mmol/L (98-107); GLUCOSE 100 mg/dL (75-110); POTASSIUM 4.2 mmol/L (3.6-5.0); SODIUM 142.8 mmol/L (137-145)
[2017-09-04] MEDS: LINEZOLID 300 ML IV SCH ×2 (09:47→22:11)
--- NOTE | 2017-09-04 11:08 | PDOC PROGRESS REPORT ---
Subjective Progress Note for:: 09/04/17 Subjective:: Patient voices no complaints Review of systems All organ systems had been reviewed and negative All significant laboratories and diagnostics had been reviewed Reason For Visit: OSTEOMYELITIS RIGHT THUMB Physical Exam Vital Signs: Temp Pulse Resp BP Pulse Ox 98.1 F 91 14 139/72 H 99 09/04/17 00:15 09/04/17 00:15 09/04/17 00:15 09/04/17 00:15 09/04/17 00:15 Intake & Output 09/03/17 09/04/17 09/05/17 06:59 06:59 06:59 Intake Total 2130 4147 Output Total 725 Balance 2130 3422 Weight 94.1 kg 62.7 kg General appearance: PRESENT: no acute distress, cooperative, well-developed, well-nourished Head exam: PRESENT: atraumatic, normocephalic Eye exam: PRESENT: conjunctiva pink, EOMI, PERRLA Ear exam: PRESENT: normal external ear exam Mouth exam: PRESENT: moist Neck exam: PRESENT: full ROM. ABSENT: tenderness Respiratory exam: PRESENT: clear to auscultation josé miguel Cardiovascular exam: PRESENT: RRR. ABSENT: diastolic murmur, gallop, systolic murmur Vascular exam: PRESENT: normal capillary refill GI/Abdominal exam: PRESENT: normal bowel sounds, soft. ABSENT: guarding, tenderness Extremities exam: PRESENT: full ROM. ABSENT: joint swelling, pedal edema Musculoskeletal exam: PRESENT: ambulatory Neurological exam: PRESENT: alert, oriented to person, oriented to place, oriented to time Psychiatric exam: PRESENT: appropriate affect, normal mood Skin exam: PRESENT: normal color Results Laboratory Results: 09/04/17 06:33 09/04/17 06:33 09/04/17 09/04/17 06:33 06:33 WBC 3.7 L RBC 3.49 L Hgb 9.9 L Hct 30.0 L MCV 86 MCH 28.5 MCHC 33.1 RDW 13.6 Plt Count 287 Seg Neutrophils % 51.0 Lymphocytes % 36.3 Monocytes % 7.0 Eosinophils % 4.3 Basophils % 1.4 Absolute Neutrophils 1.9 Absolute Lymphocytes 1.3 Absolute Monocytes 0.3 Absolute Eosinophils 0.2 Absolute Basophils 0.1 Sodium 142.8 Potassium 4.2 Chloride 109 H Carbon Dioxide 24 Anion Gap 10 BUN 12 Creatinine 0.68 Est GFR ( Amer) > 60 Est GFR (Non-Af Amer) > 60 Glucose 100 Calcium 9.2 09/01/17 17:02 Hand - Right Gram Stain - Final Impressions: Chest X-Ray 09/01/17 00:00 IMPRESSION: NO ACUTE RADIOGRAPHIC FINDING IN THE CHEST. Assessment & Plan - Diagnosis (1) Dehydration Is this a current diagnosis for this admission?: Yes Plan: Resolved (2) Hypotension Qualifiers: Hypotension type: unspecified hypotension type Qualified Code(s): I95.9 - Hypotension, unspecified Is this a current diagnosis for this admission?: Yes Plan: Resolved (3) Bacteremia Is this a current diagnosis for this admission?: Yes Plan: Continue Zyvox IV. Echocardiogram pending. Repeat blood culture. (4) Osteomyelitis Qualifiers: Osteomyelitis type: unspecified type Osteomyelitis location: hand Laterality: right Qualified Code(s): M86.9 - Osteomyelitis, unspecified Is this a current diagnosis for this admission?: Yes Plan: Continue Zyvox IV - Time Time Spent with patient: 15-24 minutes Medications reviewed and adjusted accordingly: Yes Anticipated discharge: Home Within: within 48 hours - Inpatient Certification Based on my medical assessment, after consideration of the patient's comorbidities, presenting symptoms, or acuity I expect that the services needed warrant INPATIENT care.: Yes I certify that my determination is in accordance with my understanding of Medicare's requirements for reasonable and necessary INPATIENT services [42 CFR 412.3e].: Yes Medical Necessity: Significant Comorbidiites Make Outpatient Treatment Too Risky , Need for IV Antibiotics
--- NOTE | 2017-09-04 19:52 | PDOC PROGRESS REPORT ---
Subjective Subjective:: Patient ambulating in her room. Denies pain or discomfort. Denies headache or dizziness. Denies fever chills or sweats. Denies chest pain or shortness of breath. Reason For Visit: OSTEOMYELITIS RIGHT THUMB Physical Exam Vital Signs: Temp Pulse Resp BP Pulse Ox 98.4 F 95 20 135/68 H 98 09/04/17 14:58 09/04/17 14:58 09/04/17 14:58 09/04/17 14:58 09/04/17 14:58 Intake & Output 09/03/17 09/04/17 09/05/17 06:59 06:59 06:59 Intake Total 2130 4147 905 Output Total 725 Balance 2130 3422 905 Weight 94.1 kg 62.7 kg Musculoskeletal exam: PRESENT: other - Right thumb: Dressing removed today. Incision clean/dry/intact erythema along the proximal phalanx and metacarpal have significantly improved. No tenderness to palpation. Lack of sensation secondary to chronic neuropathy. No streaking erythema. Results Laboratory Results: 09/04/17 06:33 09/04/17 06:33 09/04/17 09/04/17 06:33 06:33 WBC 3.7 L RBC 3.49 L Hgb 9.9 L Hct 30.0 L MCV 86 MCH 28.5 MCHC 33.1 RDW 13.6 Plt Count 287 Seg Neutrophils % 51.0 Lymphocytes % 36.3 Monocytes % 7.0 Eosinophils % 4.3 Basophils % 1.4 Absolute Neutrophils 1.9 Absolute Lymphocytes 1.3 Absolute Monocytes 0.3 Absolute Eosinophils 0.2 Absolute Basophils 0.1 Sodium 142.8 Potassium 4.2 Chloride 109 H Carbon Dioxide 24 Anion Gap 10 BUN 12 Creatinine 0.68 Est GFR ( Amer) > 60 Est GFR (Non-Af Amer) > 60 Glucose 100 Calcium 9.2 09/01/17 17:02 Hand - Right Gram Stain - Final 09/01/17 17:02 Hand - Right Wound Culture - Final Staphylococcus Aureus Staphylococcus Epidermidis No Anaerobic Organisms 09/01/17 18:04 Blood Blood Culture - Final Staphylococcus Aureus 09/01/17 17:02 Hand - Cellulitis Gram Stain - Final 09/01/17 17:02 Hand - Cellulitis Wound Culture - Final Staphylococcus Aureus No Anaerobic Organisms Impressions: Chest X-Ray 09/01/17 00:00 IMPRESSION: NO ACUTE RADIOGRAPHIC FINDING IN THE CHEST. Assessment & Plan - Diagnosis (1) Osteomyelitis Qualifiers: Osteomyelitis type: unspecified type Osteomyelitis location: hand Laterality: right Qualified Code(s): M86.9 - Osteomyelitis, unspecified Is this a current diagnosis for this admission?: Yes Plan: Status post right thumb amputation 09/01/17 #1 patient antibiotics has been transitioned to Zyvox given the positive bacteremia as per hospitalist recommendation. Patient is on Zyvox will not require PICC line placement. #2 Cultures demonstrate MSSA #3 given patient's osteomyelitis involvement she will require at least 4 weeks of antibiotics. #4 discharge planning: Discharge home once blood cultures negative as per hospitalist recommendation.
[2017-09-04] MEDS: RIVAROXABAN 10 MG TABLET PO SCH (22:11)
[2017-09-05 06:34] LABS: ABSOLUTE EOSINOPHILS # (AUTO) 0.2 10^3/uL (0.0-0.6); ABSOLUTE LYMPHOCYTES (AUTO) 1.6 10^3/uL (0.5-4.7); ABSOLUTE MONOCYTES (AUTO) 0.3 10^3/uL (0.1-1.4); ABSOLUTE NEUT (AUTO) 2.1 10^3/uL (1.7-8.2); BASOPHILS % (AUTO) 1.1 % (0-2); EOSINOPHILS % (AUTO) 3.9 % (0-6); HEMATOCRIT 29.5 % (36.0-47.0); HEMOGLOBIN 9.7 g/dL (12.0-15.5); LYMPHOCYTES % (AUTO) 38.2 % (13-45); MEAN CORPUSCULAR HEMOGLOBIN 28.4 pg (27.0-33.4); MEAN CORPUSCULAR VOLUME 86 fl (80-97); MONOCYTES % (AUTO) 7.1 % (3-13); PLATELET COUNT 267 10^3/uL (150-450); RED BLOOD COUNT 3.43 10^6/uL (3.72-5.28); RED CELL DISTRIBUTION WIDTH 13.7 % (11.5-14.0); SEGMENTED NEUTROPHILS % (AUTO) 49.7 % (42-78); TOTAL CELLS COUNTED % (AUTO) 100 %; WHITE BLOOD COUNT 4.2 10^3/uL (4.0-10.5)
[2017-09-05] MEDS: LINEZOLID 300 ML IV SCH (09:33)
--- NOTE | 2017-09-05 13:44 | PDOC PROGRESS REPORT ---
Subjective Progress Note for:: 09/05/17 Subjective:: Patient voices no complaints Review of systems All organ systems had been reviewed and negative All significant laboratories and diagnostics had been reviewed Reason For Visit: OSTEOMYELITIS RIGHT THUMB Physical Exam Vital Signs: Temp Pulse Resp BP Pulse Ox 98.2 F 93 16 133/66 H 100 09/04/17 23:42 09/04/17 23:42 09/04/17 23:42 09/04/17 23:42 09/04/17 23:42 Intake & Output 09/04/17 09/05/17 09/06/17 06:59 06:59 06:59 Intake Total 4147 2725 Output Total 725 0 Balance 3422 2725 Weight 62.7 kg 62.9 kg General appearance: PRESENT: no acute distress, cooperative, well-developed, well-nourished Head exam: PRESENT: atraumatic, normocephalic Eye exam: PRESENT: EOMI, PERRLA Ear exam: PRESENT: normal external ear exam Mouth exam: PRESENT: moist Neck exam: PRESENT: full ROM, lymphadenopathy. ABSENT: JVD, tenderness Respiratory exam: PRESENT: clear to auscultation josé miguel Cardiovascular exam: PRESENT: RRR. ABSENT: diastolic murmur, systolic murmur Vascular exam: PRESENT: normal capillary refill GI/Abdominal exam: PRESENT: normal bowel sounds, soft. ABSENT: tenderness Extremities exam: PRESENT: pedal edema, other - clean dressing. ABSENT: joint swelling Neurological exam: PRESENT: alert, awake, oriented to person, oriented to place , oriented to time Psychiatric exam: PRESENT: appropriate affect, normal mood Skin exam: PRESENT: intact, normal color Results Laboratory Results: 09/05/17 05:24 09/04/17 06:33 09/05/17 09/05/17 05:24 05:24 WBC 4.2 RBC 3.43 L Hgb 9.7 L Hct 29.5 L MCV 86 MCH 28.4 MCHC 33.0 RDW 13.7 Plt Count 267 Seg Neutrophils % 49.7 Lymphocytes % 38.2 Monocytes % 7.1 Eosinophils % 3.9 Basophils % 1.1 Absolute Neutrophils 2.1 Absolute Lymphocytes 1.6 Absolute Monocytes 0.3 Absolute Eosinophils 0.2 Absolute Basophils 0.0 Magnesium 1.9 09/01/17 17:02 Hand - Right Gram Stain - Final 09/01/17 17:02 Hand - Right Wound Culture - Final Staphylococcus Aureus Staphylococcus Epidermidis No Anaerobic Organisms 09/01/17 18:04 Blood Blood Culture - Final Staphylococcus Aureus 09/01/17 17:02 Hand - Cellulitis Gram Stain - Final 09/01/17 17:02 Hand - Cellulitis Wound Culture - Final Staphylococcus Aureus No Anaerobic Organisms Impressions: Chest X-Ray 09/01/17 00:00 IMPRESSION: NO ACUTE RADIOGRAPHIC FINDING IN THE CHEST. Assessment & Plan - Diagnosis (1) Dehydration Is this a current diagnosis for this admission?: Yes Plan: Resolved (2) Hypotension Qualifiers: Hypotension type: unspecified hypotension type Qualified Code(s): I95.9 - Hypotension, unspecified Is this a current diagnosis for this admission?: Yes Plan: Resolved (3) Bacteremia Is this a current diagnosis for this admission?: Yes Plan: Echocardiogram order and is pending. Repeat blood cultures negative in [address] Fortune at [facility] and recommended minimum of 4 weeks on oxacillin. Opted to place patient on Nafcillin 12 g IV continuous drip. To request PICC line and discontinue Zyvox. Consult case management (4) Osteomyelitis Qualifiers: Osteomyelitis type: unspecified type Osteomyelitis location: hand Laterality: right Qualified Code(s): M86.9 - Osteomyelitis, unspecified Is this a current diagnosis for this admission?: Yes Plan: To place on nafcillin 12 g IV continuously for a minimal amount of 4 weeks. Ideally 4-6 weeks (5) Anemia Qualifiers: Anemia type: unspecified type Qualified Code(s): D64.9 - Anemia, unspecified Is this a current diagnosis for this admission?: Yes Plan: More consistent with anemia of chronic disease - Time Time Spent with patient: 15-24 minutes Medications reviewed and adjusted accordingly: Yes Anticipated discharge: Home with Homehealth Within: within 72 hours - Inpatient Certification Based on my medical assessment, after consideration of the patient's comorbidities, presenting symptoms, or acuity I expect that the services needed warrant INPATIENT care.: Yes I certify that my determination is in accordance with my understanding of Medicare's requirements for reasonable and necessary INPATIENT services [42 CFR 412.3e].: Yes Medical Necessity: Need for IV Antibiotics, Need for Surgery
[2017-09-05] MEDS ORDERED: NAFCILLIN SODIUM INJ 2 GM VIAL IV SCH (13:45)
[2017-09-05] MEDS ORDERED: WATER IV PRN ×2 (14:05)
[2017-09-05] MEDS ORDERED: DEXTROSE 5% IV PRN ×2 (14:05)
[2017-09-05] MEDS ORDERED: NAFCILLIN SODIUM IV PRN ×2 (14:05)
--- NOTE | 2017-09-05 15:29 | RADIOLOGY REPORT (SQ) ---
EXAM DESCRIPTION: PICC INSERTION; FLUORO/CV PLACEMENT; U/S GUIDE FOR VASCULAR ACCESS COMPLETED DATE/TIME: 09/05/2017 3:14 pm REASON FOR STUDY: prolonged antibiotic therapy; IV ABX M86.149 OTHER ACUTE OSTEOMYELITIS, UNSPECIFI ED HAND COMPARISON: AP chest 09/01/2017 FLUOROSCOPY TIME: 19 seconds 1 digital radiographic and 1 ultrasound images saved to PACS. TECHNIQUE: Fluoroscopic and ultrasound guided PICC placement. LIMITATIONS: None. PROCEDURE: After written consent and assessment were obtained, the patient was brought into the fluo roscopy room and place supine on the table. Ultrasound was used on the patient's left arm for PICC a ccess. The left arm was prepped and draped in a sterile fashion along with the ultrasound probe. The entry site was anesthetized with 1% lidocaine. A 21 gauge 7 cm needle was advanced through the skin a nd into the basilic vein under live ultrasound guidance. An ultrasound image was saved to PACS confi rming access site. A .018 guide wire was then inserted through the needle and into the venous system . The needle was the removed and an 11 blade scalpel was used to make a 1cm skin incision. A 5 fr pe el-away sheath was advanced over the wire and into the venous system. A measurement was then made usi ng the existing wire and live fluoroscopic guidance. The wire was then removed and the trimmed. The P ICC was advanced through the peel-away sheath and into the venous system. The peel-away sheath was re moved and the catheter was adhered to the patients arm with a stat lock. The catheter was then aspira mike and flushed and a sterile bandage was placed over the access site. A fluoroscopic spot image was saved to PACS confirming the catheter tip within the superior vena cava. IMPRESSION: SUCCESSFUL PLACEMENT OF A 5 FR DUAL LUMEN 30 CM PICC IN THE LEFT BASILIC VEIN. COMMENT: Patient medication list reviewed: Yes- Quality ID# [id number]:Eligible professional attests to doc umenting in the medical record they obtained, updated, or reviewed the patient's current medications. . Quality ID 145: Final reports for procedures using fluoroscopy that document radiation exposure jeri alisha, or exposure time and number of fluorographic images (if radiation exposure indices are not avail able) Quality ID #76: The patient was prepped and draped using maximum sterile barrier technique including cap, mask, sterile gown, sterile gloves, a large sterile sheet, hand hygiene, and 2% Chlorhexidine fo r cutaneous antisepsis. When ultrasound is used, sterile ultrasound techniques are followed requiring sterile gel and sterile probes. TECHNICAL DOCUMENTATION: JOB ID: [id number]- All Rights Reserved
[2017-09-05] MEDS: NORMAL SALINE 1000 ML 1,000 ML IV PRN ×2 (16:38→17:01)
--- NOTE | 2017-09-05 16:42 | PDOC PROGRESS REPORT ---
Subjective Subjective:: Patient ambulating in her room. Denies pain or discomfort. Denies headache or dizziness. Denies fever chills or sweats. Denies chest pain or shortness of breath. Reason For Visit: OSTEOMYELITIS RIGHT THUMB Physical Exam Vital Signs: Temp Pulse Resp BP Pulse Ox 98.5 F 93 16 152/77 H 100 09/05/17 15:15 09/05/17 15:15 09/05/17 15:15 09/05/17 15:15 09/05/17 15:15 Intake & Output 09/04/17 09/05/17 09/06/17 06:59 06:59 06:59 Intake Total 4147 2725 Output Total 725 0 Balance 3422 2725 Weight 62.7 kg 62.9 kg Musculoskeletal exam: PRESENT: other - Right thumb: Surgical incision well approximated no erythema or drainage. Preoperative erythema significantly improved. No tracking erythema. Results Laboratory Results: 09/05/17 05:24 09/04/17 06:33 09/05/17 09/05/17 05:24 05:24 WBC 4.2 RBC 3.43 L Hgb 9.7 L Hct 29.5 L MCV 86 MCH 28.4 MCHC 33.0 RDW 13.7 Plt Count 267 Seg Neutrophils % 49.7 Lymphocytes % 38.2 Monocytes % 7.1 Eosinophils % 3.9 Basophils % 1.1 Absolute Neutrophils 2.1 Absolute Lymphocytes 1.6 Absolute Monocytes 0.3 Absolute Eosinophils 0.2 Absolute Basophils 0.0 Magnesium 1.9 09/01/17 17:02 Hand - Right Fungal Smear - Final 09/01/17 17:02 Hand - Right Fungal Smear - Final 09/01/17 17:02 Hand - Right Fungal Smear - Final 09/01/17 17:02 Hand - Right Fungal Smear - Final 09/01/17 17:02 Hand - Right Gram Stain - Final 09/01/17 17:02 Hand - Right Wound Culture - Final Staphylococcus Aureus Staphylococcus Epidermidis No Anaerobic Organisms 09/01/17 18:04 Blood Blood Culture - Final Staphylococcus Aureus 09/01/17 17:02 Hand - Cellulitis Gram Stain - Final 09/01/17 17:02 Hand - Cellulitis Wound Culture - Final Staphylococcus Aureus No Anaerobic Organisms Impressions: Chest X-Ray 09/01/17 00:00 IMPRESSION: NO ACUTE RADIOGRAPHIC FINDING IN THE CHEST. Guidance Fluoroscopy 09/05/17 00:00 IMPRESSION: SUCCESSFUL PLACEMENT OF A 5 FR DUAL LUMEN 30 CM PICC IN THE LEFT BASILIC VEIN. Interventional Vascular Procedure 09/05/17 00:00 IMPRESSION: SUCCESSFUL PLACEMENT OF A 5 FR DUAL LUMEN 30 CM PICC IN THE LEFT BASILIC VEIN. PICC Line Insertion 09/05/17 00:00 IMPRESSION: SUCCESSFUL PLACEMENT OF A 5 FR DUAL LUMEN 30 CM PICC IN THE LEFT BASILIC VEIN. Assessment & Plan - Diagnosis (1) Osteomyelitis Qualifiers: Osteomyelitis type: unspecified type Osteomyelitis location: hand Laterality: right Qualified Code(s): M86.9 - Osteomyelitis, unspecified Is this a current diagnosis for this admission?: Yes Plan: Status post right thumb amputation 09/01/17 #1 patient antibiotics has been transitioned to oxacillin will receive 4 weeks of IV antibiotics. PICC line has been placed. #2 Cultures demonstrate MSSA #3 given patient's osteomyelitis involvement she will require at least 4 weeks of antibiotics. #4 discharge planning: Discharge home once blood cultures negative as per hospitalist recommendation.
--- NOTE | 2017-09-05 18:08 | XCELERA REPORT ---
[address] [address] Transthoracic Echocardiogram Report Name: CHARO SEPULVEDA Age: 62 yrs Gender: Female : 1955 Patient Status: Outpatient Patient Location: [facility]^A Study Date: 09/05/2017 01:52 PM Height: 60 in Weight: 207 lb BSA: 1.9 m2 Procedure: A two-dimensional transthoracic echocardiogram with color flow and Doppler was performed. The study was technically difficult with many images being suboptimal in quality. The study was technically limited with all images being suboptimal in quality. Reason For Study: BACTEREMIA History: BACTEREMIA. Ordering Physician: JAMES ROTH Performed By: Kathy Franks Interpretation Summary The left ventricle is normal in size. There is normal left ventricular wall thickness. LV EF is 65% Left ventricular systolic function is normal. Doppler measurements suggest impaired left ventricular relaxation, which is associated with grade I/IV or mild diastolic dysfunction The left ventricular wall motion is normal. There is no thrombus. There is no ventricular septal defect visualized. The right ventricle is grossly normal size. The right atrium is normal. The left atrial size is normal. The interatrial septum is intact with no evidence for an atrial septal defect. There is no evidence of mitral valve prolapse. There is no mitral valve stenosis. There is no mitral regurgitation noted. There is no aortic valvular vegetation. There is no aortic valve stenosis There is no LVOT obstruction. No aortic regurgitation is present. There is no tricuspid stenosis. No tricuspid regurgitation. Unable to calculate RVSP due to lack of TR jet. There is no pulmonic valvular stenosis. There is a trace amount of pulmonic regurgitation The aortic root is normal size. There is no pericardial effusion. MMode/2D Measurements & Calculations RVDd: 2.3 cm LVIDd: 3.2 cm FS: 42.4 % Ao root diam: 2.1 cm IVSd: 0.90 cm LVIDs: 1.9 cm EDV(Teich): 41.4 ml LVPWd: 0.91 cm ESV(Teich): 10.5 ml Ao root area: 3.6 cm2 EF(Teich): 74.8 % Doppler Measurements & Calculations MV E max barrington: MV dec slope: Ao V2 max: LV V1 max P.0 cm/sec 162.2 cm/sec 8.4 mmHg MV A max barrington: 478.1 cm/sec2 Ao max PG: LV V1 max: 101.9 cm/sec MV dec time: 10.5 mmHg 144.7 cm/sec MV E/A: 0.82 0.18 sec PA V2 max: PI end-d barrington: 93.0 cm/sec 96.9 cm/sec PA max P.5 mmHg Left Ventricle The left ventricle is normal in size. There is normal left ventricular wall thickness. LV EF is 65%. Left ventricular systolic function is normal. Doppler measurements suggest impaired left ventricular relaxation, which is associated with grade I/IV or mild diastolic dysfunction. The left ventricular wall motion is normal. There is no thrombus. There is no ventricular septal defect visualized. Right Ventricle The right ventricle is grossly normal size. Atria The right atrium is normal. The left atrial size is normal. The interatrial septum is intact with no evidence for an atrial septal defect. Mitral Valve There is no evidence of mitral valve prolapse. There is no vegetation seen on the mitral valve. There is no mitral valve stenosis. There is no mitral regurgitation noted. Aortic Valve There is no aortic valvular vegetation. There is no aortic valve stenosis. There is no LVOT obstruction. No aortic regurgitation is present. Tricuspid Valve There is no tricuspid stenosis. No tricuspid regurgitation. Unable to calculate RVSP due to lack of TR jet. Pulmonic Valve There is no pulmonic valvular stenosis. There is a trace amount of pulmonic regurgitation. Great Vessels The aortic root is normal size. Effusions There is no pericardial effusion. : JAMES ROTH > Kimberly Eason
[2017-09-05] MEDS: RIVAROXABAN 10 MG TABLET PO SCH (22:00)
[2017-09-05] MEDS ORDERED: RIVAROXABAN 10 MG TABLET ONE (22:32)
--- NOTE | 2017-09-06 09:30 | PDOC DISCHARGE SUMMARY ---
General - Admit/Disc Date/PCP Admission Date/Primary Care Provider: JESSE GODFREY MD Discharge Date: 09/06/17 - Discharge Diagnosis (1) Bacteremia Is this a current diagnosis for this admission?: Yes (2) Osteomyelitis Is this a current diagnosis for this admission?: Yes - Additional Information Resuscitation Status: Full Code Discharge Diet: As Tolerated Discharge Activity: Activity As Tolerated, No Lifting Over 10 Pounds, No Lifting /Push/Pulling Prescriptions: Nafcillin Sodium 12 gm IV CONTINUOUS PRN 26 Days #26 vial PRN Reason: Home Medications: Aspirin [Ecotrin 81 mg EC Tablet] 81 mg PO DAILY 08/31/17 Bupropion HCl [Bupropion HCl Sr] 100 mg PO QAM 08/31/17 Cholecalciferol (Vitamin D3) [Vitamin D3] 1,000 unit PO DAILY 08/31/17 Cyclobenzaprine HCl 10 mg PO PRN PRN 08/31/17 Lisinopril/Hydrochlorothiazide [Lisinopril-Hctz 20-25 mg Tab] 1 each PO DAILY Metformin HCl [Metformin HCl ER] 500 mg PO QAM 08/31/17 Pravastatin Sodium 40 mg PO QHS 08/31/17 Nafcillin Sodium 12 gm IV CONTINUOUS PRN 26 Days #26 vial 09/06/17 History of Present Illness Patient complains of: HYPOTENSION , OSTEOMYELITIS THUMB History of Present Illness: CHARO SEPULVEDA is a 62 year old female with past medical history of depression, hypertension, hyperlipidemia and prediabetes who underwent right thumb removal for osteomyelitis today. Patient reports that she took her lisinopril this morning. She reports that she felt quite dehydrated that she went to bed quite early last evening and had not had anything to eat or drink until after surgery. Patient was found to be hypotensive postoperatively with blood pressure of 80/50. The hospital service is consulted for management of hypotension. Hospital Course Hospital Course: (1) Dehydration Is this a current diagnosis for this admission?: Yes Plan: Resolved Patient's blood pressure normalized Patient to resume antihypertensive meds at discharge (2) Hypotension Qualifiers: Hypotension type: unspecified hypotension type Qualified Code(s): I95.9 - Hypotension, unspecified Is this a current diagnosis for this admission?: Yes Plan: Resolved see above (3) MSSA Bacteremia Is this a current diagnosis for this admission?: Yes Plan: Echocardiogram was negative for endocarditis showed normal LVF , mild diastolic dysfunction Repeat blood cultures negative in [address] Fortune at [facility] and recommended minimum of 4 weeks on oxacillin. Opted to place patient on Nafcillin 12 g IV continuous drip. PICC inserted treatment will be completed on 10/02/2017 (4) Osteomyelitis Qualifiers: Osteomyelitis type: unspecified type Osteomyelitis location: hand Laterality: right Qualified Code(s): M86.9 - Osteomyelitis, unspecified Is this a current diagnosis for this admission?: Yes Plan: To place on nafcillin 12 g IV continuously for a minimal amount of 4 weeks. (5) Anemia Qualifiers: Anemia type: unspecified type Qualified Code(s): D64.9 - Anemia, unspecified Is this a current diagnosis for this admission?: Yes Plan: More consistent with anemia of chronic disease Physical Exam Vital Signs: Temp Pulse Resp BP Pulse Ox 98.4 F 94 17 144/81 H 100 09/06/17 07:56 09/06/17 07:56 09/06/17 07:56 09/06/17 07:56 09/06/17 07:56 Intake & Output 09/05/17 09/06/17 09/07/17 00:59 00:59 00:59 Intake Total 1969 1500 Output Total 0 Balance 1968 1500 Weight 62.7 kg 62.9 kg 60.7 kg General appearance: PRESENT: no acute distress, well-developed, well-nourished Head exam: PRESENT: atraumatic, normocephalic Eye exam: PRESENT: conjunctiva pink, EOMI, PERRLA. ABSENT: scleral icterus Ear exam: PRESENT: normal external ear exam Mouth exam: PRESENT: moist, tongue midline Neck exam: ABSENT: carotid bruit, JVD, lymphadenopathy, thyromegaly Respiratory exam: PRESENT: clear to auscultation josé miguel. ABSENT: rales, rhonchi, wheezes Cardiovascular exam: PRESENT: RRR. ABSENT: diastolic murmur, rubs, systolic murmur Pulses: PRESENT: normal dorsalis pedis pul Vascular exam: PRESENT: normal capillary refill GI/Abdominal exam: PRESENT: normal bowel sounds, soft. ABSENT: distended, guarding, mass, organolmegaly, rebound, tenderness Rectal exam: PRESENT: deferred Extremities exam: PRESENT: full ROM, other - Rt hand bandaged S/P amputation thumb. ABSENT: calf tenderness, clubbing, pedal edema Neurological exam: PRESENT: alert, awake, oriented to person, oriented to place , oriented to time, oriented to situation, CN II-XII grossly intact. ABSENT: motor sensory deficit Psychiatric exam: PRESENT: appropriate affect, normal mood. ABSENT: homicidal ideation, suicidal ideation Skin exam: PRESENT: dry, intact, warm. ABSENT: cyanosis, rash Results Laboratory Results: 09/05/17 05:24 09/04/17 06:33 09/01/17 17:02 Hand - Right Fungal Smear - Final 09/01/17 17:02 Hand - Right Fungal Smear - Final 09/01/17 17:02 Hand - Right Fungal Smear - Final 09/01/17 17:02 Hand - Right Fungal Smear - Final 09/04/17 10:20 Blood Culture - Preliminary Blood NO GROWTH IN 24 HOURS 09/04/17 08:30 Blood Culture - Preliminary Blood NO GROWTH AFTER 48 HOURS 09/01/17 19:45 Blood Culture - Preliminary Blood NO GROWTH 4 DAYS 09/01/17 18:04 Blood Culture - Final Blood Staphylococcus Aureus 09/01/17 18:04 Blood Culture - Final Blood Staphylococcus Aureus 09/01/17 17:02 Gram Stain - Final Hand - Right Wound Culture - Final Staphylococcus Aureus Staphylococcus Epidermidis No Anaerobic Organisms Impressions: Chest X-Ray 09/01/17 00:00 IMPRESSION: NO ACUTE RADIOGRAPHIC FINDING IN THE CHEST. Guidance Fluoroscopy 09/05/17 00:00 IMPRESSION: SUCCESSFUL PLACEMENT OF A 5 FR DUAL LUMEN 30 CM PICC IN THE LEFT BASILIC VEIN. Interventional Vascular Procedure 09/05/17 00:00 IMPRESSION: SUCCESSFUL PLACEMENT OF A 5 FR DUAL LUMEN 30 CM PICC IN THE LEFT BASILIC VEIN. PICC Line Insertion 09/05/17 00:00 IMPRESSION: SUCCESSFUL PLACEMENT OF A 5 FR DUAL LUMEN 30 CM PICC IN THE LEFT BASILIC VEIN. Plan Discharge Plan: discharge home with Home IV antibiotics Time Spent: Greater than 30 Minutes
[2017-09-06 16:53] VITALS: BP 134/96
== END 2017-09-06 17:20 | disposition home health service (06) | DRG 513 ==
LOC: OROUT 14:30 → EDSTATUS 16:15 → 4N 17:24 → OROUT 18:41 → 2S 09-05 15:04 → 4N 09-05 15:04 → OROUT 09-06 17:20 → 2S 09-06 17:20
PROVIDERS: ADMIT Orthopaedic Surgery; ATTEND Family Medicine
PROC: 0X6L0Z1 Detachment at Right Thumb, High, Open Approach (ICD-10-PCS; principal; 2017-09-01 16:15)
PROC: 02HV33Z Insertion of Infusion Device into Superior Vena Cava, Percutaneous Approach (ICD-10-PCS; 2017-09-05)
PROC: B5181ZA Fluoroscopy of Superior Vena Cava using Low Osmolar Contrast, Guidance (ICD-10-PCS; 2017-09-05)
PROC: B548ZZA Ultrasonography of Superior Vena Cava, Guidance (ICD-10-PCS; 2017-09-05)
DX: M86.141 Other acute osteomyelitis, right hand (principal); R78.81 Bacteremia; B95.61 Methicillin susceptible Staphylococcus aureus infection as the cause of diseases classified elsewhere; E86.0 Dehydration; I95.9 Hypotension, unspecified; D64.9 Anemia, unspecified; M54.12 Radiculopathy, cervical region; E78.00 Pure hypercholesterolemia, unspecified; R73.03 Prediabetes; I10 Essential (primary) hypertension; F32.9 Major depressive disorder, single episode, unspecified; Z79.84 Long term (current) use of oral hypoglycemic drugs; Z79.82 Long term (current) use of aspirin; Z79.899 Other long term (current) drug therapy; Z82.49 Family history of ischemic heart disease and other diseases of the circulatory system
CPT/HCPCS: 1830; 36415; 36569; 71045; 76937; 77001; 80048; 81001; 82962; 83735; 85025; 86850; 86900; 86901; 87015; 87040; 87070; 87075; 87077; 87101; 87116; 87186; 87205; 87206; 88304; 88311; 93005; 93010; 93306; J0744; J1100; J1642; J2020; J2250; J2405; J2704; J3010; J3490; J7030; J7060; S0032